=== PATIENT | male | born 1965 | race Caucasian/White ===

== ENCOUNTER 2016-04-12 12:18 | Emergency (ER) | payer OTHER ==
[~2016-04-12] VITALS: Ht 172.7 cm; Wt 117.0 kg
[2016-04-12 12:45] VITALS: BP 135/90; PULSE 84; RESP 16; TEMP 98.7; O2SAT 98
--- NOTE | 2016-04-12 13:38 | PD ---
HPI Chief Complaint: Oral / Dental Pain or Problem Time Seen by Provider: 13:37 Travel History International Travel<30 days: No Contact w/Intl Traveler<30days: No Traveled to known affect area: No History of Present Illness HPI 50-year-old male presents to the emergency room for evaluation of left lower dental pain for the past 3 weeks. Patient states he had an appointment with his dentist who told him that he needed to have this tooth taken out but when he followed up with the surgeon, the surgeon refused stating it was not necessary at that time. He was placed on antibiotics but he does not remember which one and symptoms subsided temporarily. States they recurred yesterday evening at which time he called his dentist who recommended he receive another round of antibiotics. Patient lives in [place] and none of the local dentists will take his insurance. He has not taken anything for pain. He denies fever, chills, nausea, vomiting, or difficulty eating or drinking. PFSH Past Medical History Medical History: Denies Significant Hx Tetanus Vaccination: < 5 Years Influenza Vaccination: Yes Past Surgical History Surgical History: No Previous Surgery Social History Alcohol Use: Yes (RARE) Tobacco Use: No Substance Use: No Allergies-Medications (Allergen,Severity, Reaction): Coded Allergies: No Known Allergies (Unverified , 04/12/16) Reported Meds & Prescriptions Reported Meds & Active Scripts Active Ibuprofen 800 Mg Tab 800 Mg PO Q8H PRN Penicillin Vk (Penicillin V Potassium) 250 Mg Tab 500 Mg PO Q8HR 7 Days Review of Systems Except as stated in HPI: all other systems reviewed are Neg Physical Exam Narrative GENERAL: Well-nourished, well-developed male in no acute distress. Afebrile. Ambulatory. SKIN: Warm and dry. HEAD: Normocephalic. EYES: No scleral icterus. No injection or drainage. DENTAL: Moderate dentition overall. No loose or chipped teeth. No malocclusion. No obvious abscess. No erythema or edema. No submental, submandibular, or buccal induration. Data Data Last Documented VS Vital Signs Date Time Temp Pulse Resp B/P Pulse Ox O2 Delivery O2 Flow Rate FiO2 04/12/16 12:45 98.7 84 16 135/90 98 Orders Ibuprofen (Motrin) (04/12/16 13:45) [facility] Medical Decision Making Medical Screen Exam Complete: Yes Emergency Medical Condition: Yes Medical Record Reviewed: Yes Differential Diagnosis Dentalgia versus gingivitis versus contusion versus dental infection Narrative Course 50-year-old male presents to the emergency room for evaluation of dental pain for the past 3 weeks that worsened last night. He called his dentist who recommended to receive antibiotics but dentist is in [place]. His insurance company told him to come to the emergency room. There are no obvious signs of infection. Tooth is extremely tender to palpation. He was given ibuprofen in the emergency room and discharged with prescriptions for ibuprofen and penicillin. Told to follow up with the dentist and return for worsening symptoms. He understands and agrees to plan Diagnosis Primary Impression: Dentalgia Referrals: Dentist Patient Instructions: General Instructions, Toothache (ED) Additional Instructions: Rest and drink plenty of fluids. Amoxicillin as directed, until gone. Follow-up with a dentist. Return to the emergency room for worsening symptoms. Med/Other Pt SpecificInfo: Prescription(s) given Scripts Ibuprofen 800 Mg [id number] Mg PO Q8H PRN (Pain/Inflammation) #21 TAB Ref 0 Prov:Houston Hernandez MD 04/12/16 Penicillin V Potassium (Penicillin Vk)250 Mg [id number] Mg PO Q8HR 7 Days Ref 0 Prov:Houston Hernandez MD 04/12/16 Disposition: 01 DISCHARGE HOME Condition: Stable Tennille Gonzales Apr 12, 2016 13:38
[2016-04-12] MEDS ORDERED: PENI250T59 PO (13:44)
[2016-04-12] MEDS ORDERED: IBUP800T23 PO (13:44)
[2016-04-12] MEDS ORDERED: IBUPROFEN 800 MG TAB PO ONE (13:45)
== END 2016-04-12 14:52 | disposition home or self-care (01) ==
LOC: PHEFT 12:18
DX: K08.89 Other specified disorders of teeth and supporting structures (principal)
CPT/HCPCS: 99282